=== PATIENT | female | born 1965 | race Caucasian/White ===

== ENCOUNTER → 2017-03-16 | Outpatient (CLI) | payer OTHER | LOC: CIMAGING 17:08 | PROVIDERS: ATTEND Podiatrist | DX: M77.32 Calcaneal spur, left foot (principal) | CPT/HCPCS: 73630-PO ==

== ENCOUNTER → 2017-10-14 | Outpatient (CLI) | payer OTHER | LOC: CIMAGING 16:42 | PROVIDERS: ATTEND Podiatrist | DX: M77.31 Calcaneal spur, right foot (principal); M72.2 Plantar fascial fibromatosis; M77.51 Other enthesopathy of right foot and ankle; G57.51 Tarsal tunnel syndrome, right lower limb | CPT/HCPCS: 73630-PO ==

== ENCOUNTER 2017-12-23 10:59 | Emergency (ER) | payer OTHER ==
[2017-12-23] MEDS ORDERED: ACETAMINOPHEN 500 MG TAB PO ONE (11:30)
--- NOTE | 2017-12-23 11:34 | EDPHY ---
H & P Time Seen by Provider: 12/23/17 11:14 HPI/ROS: CHIEF COMPLAINT: Neck injury, head injury HISTORY OF PRESENT ILLNESS: 52-year-old female, not anticoagulated, presents after slipping this morning on the steps going to her backyard. She stepped onto the flag stone, feet slipped out from underneath her. She fell backwards landing on her buttocks and then striking the back of her neck on the step edge as well as striking her head. She immediately had significant pain and swelling at the base of her neck. Also felt like the wind was knocked out of her and reports some shortness of breath. Denies any numbness or tingling in her arms or legs. Denies any weakness. Was otherwise well prior to the event. Took aspirin yesterday. REVIEW OF SYSTEMS: Aside from elements discussed in the HPI, a comprehensive 10-point review of systems was reviewed and is negative. PAST MEDICAL HISTORY: History of BRACA 2, status post prophylactic hysterectomy and bilateral mastectomy, hypothyroidism. SOCIAL HISTORY: Nonsmoker. VITAL SIGNS: Reviewed by me; see NN. GENERAL: Overweight individual, moving slowly, in a cervical collar which was placed on arrival to the emergency department. Complaining of pain in her neck as well as shortness of breath. HEENT: Head: Atraumatic, normocephalic. Face: Atraumatic. PERRL, EOMI, no nystagmus. Oropharynx: No trauma, normal occlusion. Neck: Erythema and swelling the base of the neck, somewhat to the right of midline with palpable tenderness. Lower C-spine tenderness. CHEST: Nontender, no subcutaneous air palpable. LUNGS: Clear to auscultation bilaterally, breath sounds are equal. CARDIAC: Regular rate and rhythm, no rubs, murmurs or gallops. ABDOMEN: Soft, nontender, nondistended, bowel sounds normal. BACK: No midline thoracic or lumbar spine tenderness. EXTREMITIES: No trauma noted, normal range of motion. PULSES: 2+ and equal throughout. NEURO: Alert and oriented x3, cranial nerves are intact throughout, slightly diminished quadriceps strength right lower extremity. Sensation intact to light touch throughout. Normal [id number]. SKIN: Warm and dry, no rash. Smoking Status: Never smoked Constitutional: Initial Vital Signs Temperature (C) 37 C 12/23/17 11:08 Heart Rate 73 12/23/17 11:08 Respiratory Rate 22 H 12/23/17 11:08 Blood Pressure 175/103 H 12/23/17 11:08 O2 Sat (%) 100 12/23/17 11:08 O2 Delivery Mode Room Air Allergies/Adverse Reactions: Sulfa (Sulfonamide Antibiotics) Adverse Reaction (Verified 12/23/17 11:15) DIZZY Home Medications: Medication Instructions Recorded Levothyroxine [Synthroid 50 mcg 50 mcg PO DAILY06 01/04/12 (RX)] Ascorbic Acid [Vitamin C 500 mg 500 mg PO DAILY 07/08/13 (OTC)] Calcium Carb, Cit/Magnesium Ox 3 each PO DAILY 07/08/13 [Calmag Thins Tablet] Lactobacillus Acidophilus 1 each PO DAILY 07/08/13 [Probiotic] Multivitamins [Tab-A-Jorge] 1 each PO DAILY 07/08/13 [place]-3 Fatty Acids/Fish Oil [Fish 1 each PO DAILY 07/08/13 Oil 1,000 mg Capsule] Cholecalciferol Vit D3 [Vitamin D3 2,000 units PO DAILY 07/10/13 2000 units (OTC)] Herbals/Supplements -Info Only 1 each PO AD 07/10/13 Iron/Docusate Sodium 1 each PO DAILY 07/10/13 [Angelita-Sequels 50 mg] Cyclobenzaprine [Flexeril 10 MG 10 mg PO TID PRN #20 tab 12/23/17 (RX)] Hydrocodone/APAP 5/325 [[place] 1 tab PO Q6H PRN #10 tab 12/23/17 5/325 (RX)] Medical Decision Making - Diagnostics Imaging Results: CT Head: Impression: No acute posttraumatic abnormality identified. CT Cervical Spine: Impression: Multi level disk disease of unknown acuity. Results called to Dr. Perkins at 1:[address] Tavares Imaging: Discussed imaging studies w/ weight caller Radiologist ED Course/Re-evaluation: Tylenol administered for pain. CT scan of the cervical spine and head: CT scans negative for any acute traumatic findings. Patient was reexamined: Cervical collar was removed. Patient reports her neck feels better out of the collar. She has developed some stiffness especially over the area of contusion. Her shortness of breath has resolved. Lidocaine patch, Toradol, and Flexeril given. Patient discharged with instructions regarding ibuprofen, Flexeril, ice, lidocaine patch, and a short course of [place] to use as needed. She will follow up with Neurosurgery if she continues to have significant discomfort. Differential Diagnosis: Differential diagnoses for the patient's symptom complex was considered including but not limited to intracranial injury, cervical spine fracture, acute disc herniation, ligamentous injury, contusion, sprain. - Data Points Medications Given: Discontinued Medications Acetaminophen (Tylenol) 1,000 mg PO EDNOW ONE Stop: 12/23/17 11:31 Last Admin: 12/23/17 11:40 Dose: 1,000 mg Cyclobenzaprine HCl (Flexeril) 10 mg PO EDNOW ONE Stop: 12/23/17 13:18 Last Admin: 12/23/17 13:38 Dose: 10 mg Ketorolac Tromethamine (Toradol) 30 mg IM EDNOW ONE Stop: 12/23/17 13:18 Last Admin: 12/23/17 13:32 Dose: 30 mg Miscellaneous Medication (Icy Hot Lidocaine/Menthol 4%/1% Patch) 1 patch TD EDNOW ONE Stop: 12/23/17 13:18 Last Admin: 12/23/17 13:39 Dose: 1 patch Departure - Departure Disposition: Home, Routine, Self-Care Clinical Impression: Acute cervical sprain Qualifiers: Encounter type: initial encounter Qualified Code(s): S13.9XXA - Sprain of joints and ligaments of unspecified parts of neck, initial encounter Contusion Qualifiers: Encounter type: initial encounter Contusion area: neck Qualified Code(s): S10.93XA - Contusion of unspecified part of neck, initial encounter Condition: Fair Instructions: Cervical Strain (ED), Acute Neck Pain (ED) Additional Instructions: 1. I recommend Ibuprofen (Motrin, Advil) or Naproxen Sodium (Aleve) for pain and anti-inflammatory effects. You may take either one, but do not take both. Your dose is: Ibuprofen 600 mg every 6-8 hours with food. OR Naproxen Sodium (Aleve) 220 mg every 12 hours. 2. For muscle relaxation, you been given a prescription of Flexeril. Please take this as directed. It may make you sleepy. 3. For pain relief, I suggest high-dose Tylenol (650mg-1000mg of Tylenol) up to 3 times a day. Not exceed 3000 mg in a 24 hour period. I also suggest lidocaine patches. 4% lidocaine patches are available [id number]. Apply ice for 20-30 minutes every 2-3 hours for the next 48 hours. After 48 hours, a heating pad or hot tub may feel better. Please follow up with Neurosurgery if you're not improving as expected in the next several days. Consider physical therapy or chiropractic followup for persistent discomfort. Return to the emergency department if you experience significantly worsening pain, pain radiating into the arms or legs, weakness, numbness or tingling, difficulties with bowel or bladder, fever, nausea, vomiting, or other concerns. Referrals: SHILO DONG [Primary Care Provider] - As per Instructions Baldemar Murphy MD [Medical Doctor] - As per Instructions (Follow-up as needed if you have ongoing neck discomfort or if you developed numbness or tingling in her arms or legs or weakness in your arms.) Prescriptions: Cyclobenzaprine [Flexeril 10 MG (RX)] 10 mg PO TID PRN #20 tab PRN Reason: Muscle Spasms Hydrocodone/APAP 5/325 [[place] 5/325 (RX)] 1 tab PO Q6H PRN #10 tab PRN Reason: Pain
[2017-12-23] MEDS ORDERED: LIDOCAINE 4%/MENTHOL 1% PATCH TD ONE (13:17)
[2017-12-23] MEDS ORDERED: CYCLOBENZAPRINE 10 MG TAB PO ONE (13:17)
[2017-12-23] MEDS ORDERED: KETOROLAC 15 MG/1 ML SDV IM ONE (13:17)
[2017-12-23 13:46] VITALS: BP 185/98
[2017-12-23] MEDS ORDERED: PATCH REMOVAL 1 EA PATCH TD SCH (21:00)
== END 2017-12-23 14:02 | disposition home or self-care (01) ==
LOC: CED 10:59
DX: S13.9XXA Sprain of joints and ligaments of unspecified parts of neck, initial encounter (principal); S10.93XA Contusion of unspecified part of neck, initial encounter; W01.198A Fall on same level from slipping, tripping and stumbling with subsequent striking against other object, initial encounter; Y92.007 Garden or yard of unspecified non-institutional (private) residence as the place of occurrence of the external cause
CPT/HCPCS: 70450-PO; 72125-PO; J1885